=== PATIENT | female | born 1985 | race Caucasian/White ===

== ENCOUNTER 2021-04-06 05:56 | Day surgery (SDC) | payer BC, SELFPAY ==
--- NOTE | 2021-03-28 16:52 | PCM.HP.BLA ---
History and Physical Date of Admission: 04/06/21 HPI: The patient is a 35 year old female presenting for pre-operative visit. She is scheduled for Hysteroscopy D&C and with endometrial polyp resection, for abnormal bleeding and endometrial polyp on 04/06/2021. Procedure discussed along with risks, benefits and complications. Other alternatives discussed for management. Consent form signed? Yes. ? ? PAST MEDICAL HISTORY PAST MEDICAL HISTORY Diagnosis Date ? Dry eye syndrome of bilateral lacrimal glands 12/09/2018 ? Family history of hemochromatosis 07/17/2019 ? Dad and sister ? Myopia, bilateral 12/09/2018 ? Seasonal allergies 07/17/2019 ? ? PAST SURGICAL HISTORY PAST SURGICAL HISTORY Procedure Laterality Date ? PAST SURGICAL HISTORY OF ? ? ? extraction of wisdom teeth ? ? ? CURRENT MEDICATIONS No current outpatient medications on file. ? No current facility-administered medications for this visit. ? ? ALLERGIES: Bees and Seasonal Allergies ? PERSONAL HISTORY: SOCIAL HISTORY Social History ? Tobacco Use ? Smoking status: Never Smoker ? Smokeless tobacco: Never Used Vaping Use ? Vaping Use: Never used Substance Use Topics ? Alcohol use: Yes ? ? Comment: very occasional ? Drug use: No ? FAMILY HISTORY: FAMILY HISTORY FAMILY HISTORY Problem Relation Age of Onset ? Breast Cancer Mother 62 ? Cancer Father ? ? testicular, head and neck ? Blood Disease Father ? ? hemochromatosis ? Blood Disease Sister ? ? Hemochromotosis ? Heart Maternal Grandfather ? ? pace maker ? Stroke Maternal Grandfather ? ? Cancer Paternal Grandmother ? ? liver cancer, secondary to hemochomatosis ? Diabetes Paternal Grandfather ? ? Alzheimer's Disease No Family History ? ? Colon Cancer No Family History ? ? Prostate Cancer No Family History ? ? Ovarian cancer No Family History ? ? Coronary Artery Disease No Family History ? ? Hypertension No Family History ? ? Hyperlipidemia No Family History ? ? Kidney Disease No Family History ? ? Seizures No Family History ? ? Thyroid No Family History ? ? ? REVIEW OF SYMPTOMS: GENERAL: denies fevers or chills ENDOCRINOLOGY: has not been on steroids Cardiology : denies palpitations or chest pain Respiratory: denies SOB or cough Hematology: denies history of prolonged bleeding or easy bruising or VTE Allergy: Denies history of personal or family history of allergy to anesthesia ? PHYSICAL EXAMINATION: ? VITALS: Last menstrual period 01/19/2021. ? GENERAL: The patient is well nourished, well hydrated in no acute distress. , The patient is oriented to time, place, and person. NECK: Supple. No lynphadenopathy, normal thyroid, no thyromegaly. LUNGS: Clear to auscultation bilaterally. no wheezes, rhonchi or rales HEART: Regular rate and rhythm, Normal heart sounds and No murmurs or gallops ? IMPRESSION: AUB, endometrial polyps ? PLAN: The risks/benefits/alternatives and personal involved for the planned hysteroscopy D&C with polyp resection were reviewed with the patient. Her questions were answered to her satisfaction and she desires to proceed. Consent was signed. I reviewed with her postop instructions and expectations. ? ? I have reviewed and updated past medical and surgical history, medications and allergies This H&P was completed in my office on 03/28/2021
[2021-04-04 08:58] LABS: Hematocrit 39.4 % (37-47); Mean Corpuscular Volume 90.8 fL (81-99); Mean Platelet Vol. 9.4 fl (6.2-12.0); Platelet Count 217 K/mm3 (150-450); RBC Distribution Width CV 12.3 % (11.6-14.6); RBC Distribution Width SD 40.8 fl (35.1-43.9); Red Blood Count 4.34 M/mm3 (4.2-5.4); White Blood Count 3.8 K/mm3 (4.4-11.0)
[2021-04-06] MEDS: Lactated Ringers 1,000 ML 100 ML IV (06:05)
[2021-04-06 06:22] LABS: Internal QC Validated? YES +Cl - CLEAR BKGD; Pregnancy, Urine Negative Negative
[2021-04-06] MEDS: Ketorolac 30 MG/ML Syringe IV (06:31)
[2021-04-06] MEDS: Acetaminophen 500 MG Tablet 1000 MG PO (06:31)
[2021-04-06 06:32] VITALS: BP 120/73; PULSE 83; RESP 16; TEMP 37.2; O2SAT 100; BMI 20.2
--- NOTE | 2021-04-06 07:30 | EMB_PTH ---
PATIENT: SUSHIL BARRY [place] [facility] [place][id number] AGE/SX: 35/F ROOM: RE04/06/[address]: Dr. Lata Florian MD : [id number] BED: DIS: 04/06/2021 SPEC #: [id number] RECD: 04/06/21 13:39 STATUS: KENDELL REFranco #: [id number] DAGOBERTO: 04/06/21 07:[address]: Lata Florian DEPT: SURGICAL PATHOLOGY RECD BY: Mckenna Martin ENTERED: 04/06/21 13:53 SP TYPE: ENDOM BX/C OTHR DR: Dr. Andrew Richards MD Tissues: Endometrium, NOS Procedures: Surgery Specimen Level IV HEADER OPERATION: Hysteroscopy, D&C Symphion PRE-OP DIAGNOSIS: Abnormal uterine bleeding, endometrial polyp TISSUE SUBMITTED: Endometrial polyp, endometrial curettings MICROSCOPIC DIAGNOSIS Endometrium and polyp: Polypoid fragments of proliferative endometrium with mild disorder. AM:am 9/10/21 MICROSCOPIC DESCRIPTION Slides are reviewed. GROSS DESCRIPTION Received in formalin is one container labeled with the patient name and designated endometrial polyp, endometrial curettings. The specimen consists of multiple elongated and irregular fragments of pink-santos tissue measuring in aggregate 5 x 3 x 0.2cm. The specimen is totally submitted in two cassettes. /AM:am 04/06/21 TC:5 CPT:95688
[2021-04-06] MEDS: Lidocaine 1% /Epi 1:100 (20ml) 20 ML Vial (07:53)
[2021-04-06 08:15] VITALS: BP 120/73; BP 96/63; PULSE 76; RESP 16; TEMP 36.3; O2SAT 100
[2021-04-06 08:20] VITALS: BP 120/73; BP 92/62; PULSE 73; RESP 16; O2SAT 97
[2021-04-06 08:25] VITALS: BP 120/73; BP 94/66; PULSE 74; RESP 16; O2SAT 98
[2021-04-06 08:32] VITALS: BP 101/69; BP 120/73; PULSE 72; RESP 16; TEMP 36.3; O2SAT 98
--- NOTE | 2021-04-06 08:32 | PCM.DC ---
Discharge Instructions Diet Discharge Diet: No restrictions Activity May resume sexual activity in: 2 weeks Lifting Restrictions: none Dressing / Incision Call your doctor if your incision/area has: Sudden Increased Bleeding and Foul Smelling Discharge Call your doctor if you observe: Fever of 101 or Higher and Using more than 1 pad per hour (for 2 hrs in a row) Follow Up Care Please Follow Up With: Lata Florian MD When: 2-4 weeks or as needed. Call [phone] to make an appointment or with any concerns. Test Results: Test results from this visit will be discussed in further detail at your follow-up appointment, if applicable. Discharge Plan Admission Primary Reason for Your Visit: Dilation and curettage to remove endometrial polyps Attending Provider: Lata Florian Primary Care Provider: Andrew Richards Instructions Patient Instructions: Dilation and Curettage Discharge Orders/Prescriptions Prescriptions: No Action NK RF: 0 Referrals / Follow Up: Andrew Richards MD [Primary Care Provider] - Disposition Disposition (needs filled in before D/C Order can be placed): Home, Self Care
--- NOTE | 2021-04-06 08:34 | PCM.OPRPT ---
Problems Associated Problem List Diagnoses (1) Endometrial polyp: (2) Abnormal uterine bleeding (AUB): Report of Operation Date of Procedure: 04/06/21 Pre-Operative Diagnosis: AUB, endometrial polyps Post-Operative Diagnosis: same Surgery/Procedure Performed:: Hysteroscopy D&C with polyp resectoin Description of Surgical Findings:: normal cervix and vagina, lush endometrium, multiple polyps lower uterine segmemnt Surgeon: Lata Florian it application development manager: deyanira Gonzalez Type of Anesthesia: MAC/Supplemental/Local Anesthesiologist: Juan Maurer Special Medications: none Specimen's removed: endometrial curettings and polyp Drains: none Estimated Blood Loss (mL): 10 Fluids Replaced: 700 Description of Procedure: The patient was taken to the OR where she was prepped and draped in dorsal lithotomy position. The weighted speculum was placed in the vagina and the anterior lip of the cervix was grasped with a single-tooth tenaculum. A paracervical block was administered with [1% lidocaine with 1-100,000 epinephrine solution]. The cervix was dilated serially with Hegar dilators. The Symphion hysteroscope was placed into the uterine cavity and the above findings were noted. Bilateral tubal ostia [were] identified. The resection device was readied and inserted through the scope. It was then used to resect the multiple lower uterine segment polyps and do a visual curettage of the entire cavity. The endocervical canal was normal. The instruments were removed from the vagina. The specimen was handed off and sent to pathology. All sponge and needle counts were correct. Vaginal sweep was performed by me. The patient was awakened and taken to the recovery room in stable condition. Calculated hysteroscopic fluid deficit was approximately 900 cc of normal saline Grafts/Implants Used: none Procedure Start Time: 07:53 Procedure Stop Time: 08:07 Complications none Admit VTE Documentation VTE Present on Admission: No VTE Mechan Device Prophylaxis: SCD's VTE Pharm Prophylaxis ordered?: No Reason prophylaxis not ordered:: Procedure Not Indicated
[2021-04-06 09:49] VITALS: BP 120/73; BP 96/61; PULSE 68; RESP 16; TEMP 36.4; O2SAT 100
== END 2021-04-06 09:57 | disposition home or self-care (01) ==
LOC: SDC 05:57 → AC 05:58
PROVIDERS: PCP Family Medicine; Referring Provider Obstetrics & Gynecology; Visit Provider Obstetrics & Gynecology
PROC: 0UB98ZZ Excision of Uterus, Via Natural or Artificial Opening Endoscopic (ICD-10-PCS; CPT 58558; principal; 2021-04-06 07:15)
DX: N84.0 Polyp of corpus uteri (principal); J45.909 Unspecified asthma, uncomplicated; K21.9 Gastro-esophageal reflux disease without esophagitis
CPT/HCPCS: 00952; 58558; 36415; 81025; 85027; 88305; J7120; J2405